=== PATIENT | female | born 1940 | race Caucasian/White ===

== ENCOUNTER → 2020-01-25 09:36 | Outpatient (CLI) | payer MEDICARE, OTHER, SELFPAY ==
[2020-01-25 11:40] LABS: Coronavirus 19 IgG Antibody Negative (Negative); Coronavirus 19 IgM Antibody Negative (Negative)
== END ==
PROVIDERS: Visit Provider Internal Medicine Gastroenterology
DX: Z01.818 Encounter for other preprocedural examination (principal)
CPT/HCPCS: 36415; 86328

== ENCOUNTER 2020-01-27 13:24 | Day surgery (SDC) | payer MEDICARE, OTHER, SELFPAY ==
[2020-01-22 13:44] VITALS: BMI 26.1
[2020-01-27] VITALS (9 sets, daily range): BP systolic 75–196; BP diastolic 51–91; PULSE 65–74; RESP 16–18; TEMP 36.4–36.7; O2SAT 94–100
--- NOTE | 2020-01-27 13:30 | FL_ITS ---
PROCEDURE: FL ERCP CLINICAL INDICATION: epigastric pain COMPARISON: No exams were available for comparison FINDINGS: Fluoroscopy time: 2 minutes and 54 seconds. Two images submitted show dilated common bile duct with multiple common duct stones. IMPRESSION: Choledocholithiasis Dictated by: Stephen Dan MD 02/18/2020 15:09 Stephen Dan MD in [place] 02/18/2020 15:09
--- NOTE | 2020-01-27 15:51 | HMH.ANESCL ---
[facility] Anesthesia Checklist - Patient Identification Patient Identification: Arm Band, Verbal (Name & ) - Structural Data Admitted From: Home Planned Operative Procedure/s: ERCP Consent for Planned Operative Procedure(s) Verified: Yes Verified Documents: Surgical Consent, History and Physical - NPO Status Verified Time NPO: 00:00 - Chart Verification Results Verified: None - Additional verifications Anesthesia Reactions: No - Airway Assessment C-Spine Mobility Assessed: Yes (MP 2, TMD 3, supple neck) TMJ Mobility Assessed: Yes Dentition: Good Dentition (Missing teeth) - Neurological Assessment Level of Consciousness: Awake, Alert, Appropriate, Follows Commands Hx Seizures: No Numbness or tingling in extremities: No - Anesthesia Plan Anesthesia Risk discussed: Yes Anesthesia Plan: Verified ASA Class: III Anesthesia Type: MAC [facility] History I have reviewed the patient's past medical history: Yes Medical History: Reports:: Coronary Artery Disease, Gastroesophageal Reflux Disease(GERD), Hyperlipidemia, Hypertension Denies:: Cancer, Diabetes Mellitus Type 1, Diabetes Mellitus Type 2, Internal Pacemaker, MRSA, Seizures *Have you ever received a pneumonia vaccine?: Yes *Have you received a flu vaccine this season?: Yes Comment:: AICD Anesthesia experience/problems:: None Other Surgeries: Yes: Appendectomy, CABG, Cardiac Surgery, Colonoscopy. No: Pacemaker Amputation: No Fractures: No - *Social History Smoking Status: Never smoker Alcohol Intake: never Substance Use Type: denies use *Occupational Status:: retired Housing: house *Travel in the last 8 weeks: None Family Hx:: No significant family history
--- NOTE | 2020-01-27 15:57 | HMH.PROC ---
[facility] Procedure Note Procedure Note:: ERCP procedure Report: Endoscopic retrograde cholangiopancreatography with extension of biliary sphincterotomy, TTS balloon dilation/sphincteroplasty and balloon extraction Endoscopist: Saud Victor II, MD Referring Physician: PATRIZIA Mendoza Date of Procedure: January 27, 2020 Equipment: Olympus 180 side viewing endoscope duodenoscope Sedation: MAC sedation Indication: Mrs. Santiago is a 79-year-old female with a history of choledocholithiasis/common bile duct stones which have been recurrent. She did have gallbladder removal in 2001. She had 3 ERCPs at the [facility] and prior to this I believe that she had an ERCP with Dr. Leonel Romero. She had her initial ERCP with me in January 2017 and we have performed several ERCPs due to recurrent CBD stones as well as intermittent bouts of right upper quadrant abdominal pain and biliary colic. She has had some bouts since her last ERCP which was November 14, 2018. She did have recurrent CBD stones at that time. This is the patient's 10th ERCP. She has had some right lower quadrant pain. 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 Procedure: Prior to the procedure, a history and physical exam was performed, and patient's medications and allergies were reviewed. The risks, benefits and alternatives of the sedation and procedure were discussed with the patient. All questions were answered and informed consent was obtained. The patient was brought to the fluoroscopic radiology room. Patient identification and proposed procedure were verified by the physician and the nurse. The patient was placed in a swimmer's position between left lateral decubitus and prone position and the scope was passed under direct vision. Throughout the procedure, the patient's blood pressure, pulse, and oxygen saturations were monitored continuously. The ERCP was accomplished without difficulty. The patient tolerated the procedure well. Findings: The side-viewing duodenal scope was passed directly into the upper esophagus and advanced to the second portion of the duodenum. There was linear reactive gastropathy of the antrum and body. There was a periampullary diverticulum. The common bile duct was selectively cannulated. There was still some intra-duodenal segment of the bile duct and there was slight extension of the biliary sphincterotomy performed with the sphincterotome. Next, the common bile duct was selectively cannulated. The CBD was maximally 12 to 13 mm. There were filling defects within the common bile duct. Because of the tapering of the biliary system, a TTS hydrostatic balloon was utilized to do 10 mm dilation of the ampulla and distal CBD (i.e. sphincteroplasty). Subsequently, a 9 to 12 mm sweeping balloon was placed at the hilum and just above the hilum with sweeping of the biliary system and extraction of sludge, solid yellow-brownish stone and debris. After 3 sweeps, there was clearance of the biliary system. The pancreatic duct was not cannulated intentionally. Impression: 1. Recurrent choledocholithiasis status post sphincterotomy, sphincteroplasty and balloon extraction of stones Plan: I would consider repeat ERCP every 6 to 12 months to prevent recurrent stones and to prevent cholangitis/biliary sepsis. I will discuss the findings with the patient and family.
== END 2020-01-27 18:26 | disposition home or self-care (01) ==
LOC: OUTP 13:30
PROVIDERS: PCP Registered Nurse; Visit Provider Internal Medicine Gastroenterology
PROC: (CPT 43262; principal; 2020-01-27 14:30)
DX: K80.50 Calculus of bile duct without cholangitis or cholecystitis without obstruction (principal); Z87.19 Personal history of other diseases of the digestive system; I25.10 Atherosclerotic heart disease of native coronary artery without angina pectoris; K21.9 Gastro-esophageal reflux disease without esophagitis; E78.5 Hyperlipidemia, unspecified; I10 Essential (primary) hypertension; Z90.49 Acquired absence of other specified parts of digestive tract; I48.91 Unspecified atrial fibrillation; Z95.0 Presence of cardiac pacemaker; Z95.1 Presence of aortocoronary bypass graft; Z87.42 Personal history of other diseases of the female genital tract; Z79.899 Other long term (current) drug therapy
CPT/HCPCS: 43262; 43264; 74330; C1726; Q9967